=== PATIENT | female | born 1980 | race Hispanic/Latino ===

== ENCOUNTER → 2024-06-03 06:52 | Outpatient (CLI) | payer OTHER, SELFPAY ==
--- NOTE | 2024-06-03 06:55 | DI.US.S_ITS ---
PROCEDURE: US THYROID INDICATIONS: THYROID NODULE TECHNIQUE: Real-time scanning was performed of the thyroid gland, with image documentation. COMPARISON: None. FINDINGS: Thyroid: Right lobe measures 4.9 x 1.7 x 1.5 cm. Left lobe measures 4.1 x 1.5 x 1.3 cm. Isthmus is 3 cm thick. Echotexture is homogeneous. Nodule number: 1 Location: Right paramidline isthmus Size: 1.6 x 0.9 x 1.4 cm. Composition: Mixed solid and cystic Echogenicity: Isoechoic Shape: wider than tall. Margins: Smooth Echogenic foci: None Total points: 2 ACR TI-RADS category: TR 2 IMPRESSION: Isthmic 1.6 cm nodule, for which no further follow-up is necessary. If there is persistent concern, please correlate these findings with any available thyroid function serum testing. ACR TI-RADS definitions and recommendations: TI-RADS 1 (benign): 0 points. FNA not needed. TI-RADS 2 (not suspicious): 2 points. FNA not needed. TI-RADS 3: 3 points. * FNA if 2.5 cm or larger, follow up if 1.5 cm or larger (at 1, 3, and 5 years). TI-RADS 4: 4-6 points. * FNA if 1.5 cm or larger, follow up if 1 cm or larger (at 1, 2, 3, and 5 years). TI-RADS 5: 7 points or more. * FNA if 1 cm or larger, follow up if 0.5 cm or larger (every year for 5 years). Dictated by: Augusto Tolbert M.D. on 06/03/2024 at 9:39 Approved by: Augusto Tolbert M.D. on 06/03/2024 at 9:43
== END ==
PROVIDERS: PCP Registered Nurse; Referring Provider Registered Nurse; Visit Provider Registered Nurse
DX: E04.1 Nontoxic single thyroid nodule (principal)
CPT/HCPCS: 76536

== ENCOUNTER → 2025-05-09 09:51 | Outpatient (CLI) | payer OTHER, SELFPAY ==
--- NOTE | 2025-05-09 09:52 | DI.MG.S_ITS ---
MM diagnostic mammo unilat RT, US breast RT limited: 05/09/2025 BI-RADS: 2
== END ==
LOC: MAMMO 09:51
PROVIDERS: PCP Registered Nurse; Referring Provider Family Medicine; Visit Provider Family Medicine
DX: N63.10 Unspecified lump in the right breast, unspecified quadrant (principal); N64.89 Other specified disorders of breast; R92.331 Mammographic heterogeneous density, right breast
CPT/HCPCS: 76642; 77065; G0279